=== PATIENT | male | born 1955 | race Caucasian/White ===

== ENCOUNTER 2023-06-27 10:45 | Emergency (ER) | payer MEDICARE, SELFPAY ==
[2023-06-27] VITALS (17 sets, daily range): BP systolic 128–146; BP diastolic 77–85; PULSE 63–74; RESP 12–22; TEMP 36.5–37.1; O2SAT 95–100
--- NOTE | ~2023-06-27 | CT_ITS ---
EXAMINATION: CT foot LT w con DATE: 06/27/2023 16:39 INDICATION: Left fourth toe necrosis. TECHNIQUE: Computed tomography (CT) of the left foot was performed with 100 mL Omnipaque 350 intraven ous contrast. Automated exposure control and iterative reconstruction technique were employed. The do se-length product was 599.45 mGy-cm. COMPARISON: None FINDINGS: Bone alignment is normal. No fracture. There is chronic heterotopic ossification distal to medial malleolus. There is ankylosis of middle and intermediate naviculocuneiform joints. There is mo derate osteoarthritis of the ankle joint. There is mild to moderate osteoarthritis of many of the mid foot and hindfoot joints. There is severe osteoarthritis of lateral naviculocuneiform joint. There is mild osteoarthritis of first metatarsophalangeal joint and some of the interphalangeal joints. 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 There is an old healed fracture of base of third proximal phalanx. There are erosions of fourth middle phalanx and he ad of fourth proximal phalanx. There is soft tissue swelling of left foot and lower leg. IMPRESSION: 1. Erosions of left fourth middle phalanx and head of fourth proximal phalanx, consistent with osteom yelitis. Reviewed, dictated and finalized at location E. IMPRESSION: 1. Erosions of left fourth middle phalanx and head of fourth proximal phalanx, consistent with osteomyelitis.
[2023-06-27 15:41] LABS: Basophils Absolute Auto 0.1 K/mm3 (0.0-0.1); Basophils Percent Auto 0.5 % (0.2-1.2); Eosinophils Percent Auto 0.4 % (0-4.4); Immature Granulocyte Absolute 0.04 K/mm3 (0.00-0.031); Immature Granulocyte Percent A 0.4 % (0-0.5); Lymphocytes Percent Auto 39.4 % (18.3-44.2); Mean Corpuscular HGB Conc 34.1 g/dl (32-36); Mean Corpuscular Hemoglobin 31.3 pg (26-34); Mean Corpuscular Volume 91.7 fl (80-100); Mean Platelet Volume 9.2 fl (7.4-10.4); Monocytes Percent Auto 10.4 % (2.6-8.5); Neutrophils Absolute Auto 4.6 K/mm3 (1.3-6.7); Neutrophils Percent Auto 48.9 % (45.5-73.1); Platelet Count Result 281 k/mm3 (150-375); Red Cell Distribution Width 12.7 % (11.5-14.5); White Blood Count 9.4 K/mm3 (4.5-10.0)
[2023-06-27 15:51] LABS: Alanine Aminotransferase 19 U/L (6-50); Albumin Level 4.2 g/dL (3.5-5.1); Alkaline Phosphatase 111 U/L (38-126); Anion Gap 13 mmol/L (8-16); Aspartate Amino Transferase 25 U/L (17-59); Bilirubin,Total 0.9 mg/dL (0.2-1.3); Blood Urea Nitrogen 20 mg/dL (9-20); Calcium 9.5 mg/dL (8.4-10.2); Carbon Dioxide 26 mmol/L (22-30); Chloride 99 mmol/L (98-107); Estimated CRCL calculation 76 ml/min; Estimated Glomerular Filt Rate > 60; Glucose 138 mg/dL (65-110); Potassium 4.4 mmol/L (3.4-5.0); Sodium 138 mmol/L (137-145)
[2023-06-27 16:09] LABS: Lactic Acid Reflex 1.3 mmol/L (0.7-2.0)
--- NOTE | 2023-06-27 16:15 | ED.GENADULT ---
HPI - General Adult General Chief complaint: Wound/Laceration <Nate Woods PA-C - Last Filed: 06/27/23 20:27> Stated complaint: toe infection <Nate Woods PA-C - Last Filed: 06/27/23 20:27> Time Seen by Provider: 06/27/23 15:12 <Nate Woods PA-C - Last Filed: 06/27/23 20:27> Source: patient <DIAN Yu Last Filed: 06/27/23 20:27> Mode of arrival: ambulatory <DIAN Yu Last Filed: 06/27/23 20:27> Limitations: no limitations <Nate Woods PA-C - Last Filed: 06/27/23 20:27> History of Present Illness HPI narrative: This is a 67-year-old male with PMH A-fib, HTN, DM type II who presents to the ED with chief complaint of left fourth and fifth toe infection. He was sent here from [facility] wound care. He has been trying to get in with their system for the past week and a half. He states that there was a sore around the nail of the fourth toe around 3 weeks ago and for the past week it has been darker in color. He also reports infection with erythema and swelling to the fifth toe on the left foot as well. He states he has severe neuropathy and does not have any feeling in his feet. Reports a little bit of swelling in the left foot. Denies any lower extremity pain. Denies fevers, chills, nausea, vomiting, LOC, headache, cough. <Nate Woods PA-C - Last Filed: 06/27/23 20:27> Related Data Allergies/adverse reactions: Allergies Allergy/AdvReac Type Severity Reaction Status Date / Time No Known Allergies Allergy Mild Verified 03/19/10 19:47 <DIAN Yu Last Filed: 06/27/23 20:27> Review of Systems Review of Systems: All systems as dictated in HPI <DIAN Yu Last Filed: 06/27/23 20:27> Exam Narrative: GENERAL: Well-appearing, well-nourished, and in no acute distress. HEAD: Normocephalic, atraumatic. EYES: PERRLA and EOMI. ENT: Nares clear, no rhinorrhea or epistaxis. Mucous membranes moist. Oropharynx without tonsillar hypertrophy exudate or other lesions. NECK: Supple. No adenopathy or masses. CHEST: No respiratory distress. Clear to auscultation. No wheezes rales or rhonchi HEART: Regular rate and rhythm. No murmur heard. Normal peripheral pulses. ABDOMEN: Soft, nontender, nondistended, normal active bowel sounds. MSK: Left foot: The fourth toe is almost completely circumferentially necrotic intermediate down. The fifth toe has erythema, swelling present. There is purulent drainage from in between the toes with an open wound. Right foot: Benign SKIN: Warm, dry, no rash. NEURO: Alert and oriented x3. No focal deficits. PSYCH: Normal mood and affect. <Nate Woods PA-C - Last Filed: 06/27/23 20:27> Course [employer]/PA Physician Supervision For this patient encounter, I reviewed the [employer] or PA documentation, treatment plan, and medical decision making and I had [id number] time with this patient. I performed all aspects of the MDM as documented. <Michaelle Mark MD - Last Filed: 06/28/23 22:14> Vital Signs Vital signs: Vital Signs Temperature 98.0 F 06/27/23 11:18 Pulse Rate 74 06/27/23 11:18 Respiratory Rate 20 06/27/23 11:18 Blood Pressure 128/77 06/27/23 11:18 Pulse Oximetry 100 06/27/23 11:18 Oxygen Delivery Room Air 06/27/23 11:18 Temperature 98.7 F 06/27/23 19:30 Pulse Rate 65 06/27/23 21:10 Respiratory Rate 18 06/27/23 21:10 Blood Pressure 146/83 H 06/27/23 19:30 Pulse Oximetry 98 06/27/23 19:30 Oxygen Delivery Room Air 06/27/23 11:18 <Nate Woods PA-C - Last Filed: 06/27/23 20:27> Vital Signs Temperature 98.0 F 06/27/23 11:18 Pulse Rate 74 06/27/23 11:18 Respiratory Rate 20 06/27/23 11:18 Blood Pressure 128/77 06/27/23 11:18 Pulse Oximetry 100 06/27/23 11:18 Oxygen Delivery Room Air 06/27/23 11:18 Temperature 98.7 F 06/27/23 19:30 Pulse Rate 65 06/27/23 21:10 Respiratory Rate 18 06/27/23 21:10 Bl
[2023-06-27 16:20] LABS: CRP 6.7 mg/dL (<1.0)
[2023-06-27] MEDS: PIPERACILLIN/TAZ 4.5G/NS 100ML 4.5 GM/100 ML BAG IVPB (17:30)
[2023-06-27] MEDS: VANCOMYCIN 1,250 MG/NS 250 ML 1,250 MG/250 ML BAG 166.67 MG IVPB ×2 (18:22→20:03)
== END 2023-06-27 22:50 | disposition short-term general hospital (02) ==
PROVIDERS: Student in an Organized Health Care Education/Training Program; Emergency Provider Physician Assistant
DX: E11.69 Type 2 diabetes mellitus with other specified complication (principal); M86.9 Osteomyelitis, unspecified; E11.52 Type 2 diabetes mellitus with diabetic peripheral angiopathy with gangrene; I96 Gangrene, not elsewhere classified; E11.40 Type 2 diabetes mellitus with diabetic neuropathy, unspecified; I48.91 Unspecified atrial fibrillation; I10 Essential (primary) hypertension
CPT/HCPCS: 36415; 73701; 80053; 83605; 85025; 86140; 87040; 87070; 87077; 87186; 87205; 96365; 96366; 96367; 99285; J2543; J3370; Q9967